=== PATIENT | female | born 1985 | race Caucasian/White ===

== ENCOUNTER → 2016-11-21 08:13 | Outpatient (CLI) | payer MEDICAID | END | disposition home or self-care (01) | LOC: D.MRI 11-11 16:30 | DX: M25.561 Pain in right knee (principal) ==

== ENCOUNTER 2016-12-09 13:34 | Day surgery (SDC) | payer MEDICAID ==
[~2016-12-09] VITALS: Ht 160 cm; Wt 92.5 kg
--- NOTE | ~2016-12-09 | OP ---
PATIENT NAME: JERRY RENTERIA V MEDICAL RECORD: [id number] :89 LOCATION:D.OPS ADMISSION DATE: SURGEON: JENNY HANSEN MD DATE OF OPERATION: 12/09/2016 PREOPERATIVE DIAGNOSIS: Medial meniscus tear of the right knee POSTOPERATIVE DIAGNOSES: 1. Medial meniscus tear of the right knee. 2. Lateral meniscus tear of the right knee. PROCEDURES: 1. Arthroscopic partial medial meniscectomy 2. Arthroscopic partial lateral meniscectomy SURGEON: Jenny Hansne MD. ANESTHESIA: General. INTRAOPERATIVE COMPLICATIONS: None. SUMMARY OF PATHOLOGIC FINDINGS: The patient had a complex tear of the posterior horn of medial meniscus. Furthermore, the patient had a small tear of the posteromedial aspect of the lateral meniscus. OPERATIVE SUMMARY IN DETAIL: After obtaining the appropriate preoperative orthopedic surgery consent, the patient was brought to the operating room and placed on the operating table in supine position. After general laryngeal mask was administered, tourniquet was placed about the proximal aspect of the right lower extremity. Right lower extremity was prepped and draped in routine sterile fashion. Leg was elevated, exsanguinated and tourniquet was inflated to 350 mmHg. Routine inferolateral portal was established followed by superomedial portal and inferomedial portal. Diagnostic arthroscopy did reveal the above findings. Attention was first turned to the medial meniscus. Combination of a meniscotome as well as a arthroscopic resector were utilized to debride the posterior horn meniscal tear back to stable meniscal elements. Having completed this, attention was turned to the lateral compartment where the posterior medial aspect essentially right at the root of the lateral meniscus posteriorly had a small radial beak type tear. This was debrided using the resector. Having completed this, the knee was insufflated with 30 cc of 0.5% Marcaine with epinephrine and 40 mg of Depo-Medrol. Arthroscopy portals were closed in routine interrupted fashion using 4-0 Prolene. Sterile dressings were applied. The patient was awakened and taken to recovery room in stable condition. All final needle and sponge counts were correct. TRANSINT:[id number] Voice Confirmation ID: [id number] DOCUMENT ID: [id number] OPERATIVE REPORT [id number] JERRY RENTERIA V TYRONE RODRÍGUEZ, JENNY GUILLEN CC: [id number] DICTATION DATE: 12/09/16 172 SAND BOBBER: [id number] [facility] 12/09/16 [facility] [address] [place] [address]
[~2016-12-09 13:34] MED LIST: VYVANSE40 MG PO
[2016-12-09 14:09] LABS: HEMATOCRIT 40.4 % (36.0-48.0); HEMOGLOBIN 13.6 g/dL (12-16); MCH 30.2 pg (26.0-34.0); MCHC 33.7 g/dL (31.0-37.0); MCV 89.8 fL (80.0-100.0); MEAN PLATELET VOLUME 10.2 fL (7.4-10.4); RBC 4.5 10x6/uL (4.00-5.40); RDW 12.5 % (11.5-14.5); WBC 6.5 10x3/uL (4.8-10.8)
[2016-12-09 15:00] VITALS: BP 133/90; Ht 160 cm; Wt 92.5 kg
[2016-12-09 15:18] LABS: HCG URINE NEGATIVE (NEGATIVE)
[2016-12-09] MEDS ORDERED: HYDROCODONE-APA1 TAB PO (16:31)
--- NOTE | 2016-12-09 19:00 | NUR ---
PATIENT WALKS TO BATHROOM AND VOIDS LARGE AMOUNT IN TOILET WITHOUT DIFFICULTY, PATIENT VOMITS IN TOILET AND REQUESTS SOMETHING MORE FOR NAUSEA
--- NOTE | 2016-12-09 19:35 | NUR ---
PATIENT TOLERATING CLEAR LIQUIDS, STATES NAUSEA IS BETTER. COMPLAINS STILL FEELING "WEIRD" FROM PAIN MEDICATION. EXHIBITS ABILITY TO WALK WITH CRUTCHES TO BATHROOM AND DENIES DIZZINESS. SISTER STATES THAT PATIENT WILL BE WITH HER TONIGHT AND WILL NOT BE UNSUPERVISED. PATIENT AWAKE AND APPROPRIATE BUT COMPLAINS OF FEELING DROWSY. VITAL SIGNS STABLE. PATIENT DISCHARGED HOME WITH SISTER, INSTRUCTED TO CALL DR HANSEN IN AM IF NOT FEELING BETTER. STATES UNDERSTANDING
== END 2016-12-09 19:35 | disposition home or self-care (01) ==
LOC: D.OPS 13:34 → D.PAN 14:45 → D.OPS 19:35
PROVIDERS: Anesthesiology; Orthopaedic Surgery
DX: S83.231A Complex tear of medial meniscus, current injury, right knee, initial encounter (principal); S83.281A Other tear of lateral meniscus, current injury, right knee, initial encounter; Z01.812 Encounter for preprocedural laboratory examination

== ENCOUNTER 2016-12-13 05:08 | Emergency (ER) | payer MEDICAID ==
[2016-12-09 15:00] VITALS: BMI 36.2
[~2016-12-13 05:08] MED LIST changes: +HYDROCODONE-APA1 TAB PO
== END 2016-12-13 05:44 | disposition home or self-care (01) ==
LOC: D.ER 05:08
DX: M79.661 Pain in right lower leg (principal)